=== PATIENT | female | born 2000 | race Caucasian/White ===

== ENCOUNTER 2023-09-09 00:54 | Emergency (ER) | payer BC, SELFPAY ==
[2023-09-09] VITALS (9 sets, daily range): BP systolic 99–151; BP diastolic 51–84
[2023-09-09 01:38] LABS: % Basophils 0.4 % (0-2); % Immature Granulocytes 0.3 % (0-0.5); % Monocytes 3.8 % (1.7-9.3); % Neutrophils 84.5 % (42.2-75.2); Absolute Basophils 0.1 10^3/uL (0-0.2); Absolute Lymphocytes 1.6 10^3/uL (1.2-3.4); Absolute Monocytes 0.5 10^3/uL (0.1-0.6); Hematocrit 36.5 % (37.0-47.0); Hemoglobin 13.2 g/dL (12.0-16.0); Mean Corp Hgb Conc. 36.2 g/dL (33.0-37.0); Mean Corpuscular Hgb 31.4 pg (27.0-31.0); Mean Corpuscular Volume 86.7 fL (81.0-99.0); Mean Platelet Volume 9.4 fL (7.4-10.4); Nucleated Red Blood Cells % 0 %; Platelet Count 382 10^3/uL (130-400); Red Blood Cell Count 4.21 10^6/uL (4.20-5.40); Red Cell Dist. Width 11.5 % (11.5-14.5); White Blood Cell Count 14.2 10^3/uL (4.8-10.8)
--- NOTE | 2023-09-09 01:45 | EDRN ---
Patient brought back to the room and in a lot of pain, increased heart rate of 145, patient very emotional as well, informed Dr. Pollock of patients status, Dr. Pollock in at bedside as well as another nurse, Pelvic exam performed by Dr. Pollock with
staff at bedside assisting, procedure explained to patient, patient tolerated well, tests that are being ordered explained to patient as well, once exam finished mom brought back into the room.
--- NOTE | 2023-09-09 01:47 | ED.GENMED ---
History of Present Illness
General
Chief Complaint: Abdominal Pain
Source: patient
Time Seen by Provider: 09/09/23 01:32
History of Present Illness
History of Present Illness:
This patient is a 23-year-old female presents emergency department with her mother with complaints of bilateral lower abdominal pain associate with nausea that started earlier today. She reports clear vaginal discharge without foul smelling. She
is extremely anxious about being here. She denies chest pain, shortness of breath, back pain, urinary symptoms, headache, dizziness. She notes that she had a 'implant' placed, and has not had her period in 8 months, but then had a menstruation 3
weeks ago. She has taken many many tests over the last 8 months, and states that sometimes they will be faintly positive, most recently 5 months ago.
Past History
Past History
ED Past Medical History: Psychiatric
Social History
Tobacco: Non-smoker
Alcohol: None
Drug: None
Phy Exam
Physical Exam
Physical Exam:
GENERAL: Alert , in no apparent distress but extremely anxious
EYE: pupils equal and reactive
NECK: Supple, no significant adenopathy.
ENT: o/p clr, mmm.
CARDIAC: Regular rate and rhythm .
LUNGS: Clear breath sounds bilaterally, no acute respiratory distress, no wheezes/rales/rhonchi
ABDOMEN: Soft, bilateral lower abdominal tenderness, no r/g, no cvat
NEUROLOGICAL: Alert and oriented, no focal neuro deficits
SKIN: Warm and dry, skin intact.
MUSCULOSKELETAL: No edema, well perfused.
PSYCH: Tearful, extremely anxious
gu: external genitalae wnl, no swelling, no active d/c. Cervical os closed, min d/c noted in vaginal vault (samples collected), expresses discomfort with CMT/adnexal exam
Course
Orders/Labs/Results
Orders:
Orders
09/09/23 01:03
IV Insert/Care/Rem.- Treatment PRN
Test Result ONCE
09/09/23 01:27
Complete Blood Count/With Diff Urgent
Comprehensive Metabolic Panel Urgent
HCG, Serum Qualitative Screen Urgent
Comment: Notify provider if positive test present
Lipase Urgent
Urinalysis Reflex To Culture Urgent
Date Specimen was Collected: 09/09/23
Time Specimen was Collected: 01:03
Urine Microscopic Reflex Cult Urgent
09/09/23 01:46
US Pelvis Only (non-obstetric) Urgent
Comment:
Reason For Exam: LOWER PAIN BILATERAL
09/09/23 01:49
0.9% Sodium Chloride 1000 ml [Nss] 1,000 ml IV BOLUS
09/09/23 01:51
Chlamydia/GC by PCR Urgent
SHENG Source: Endo-Cervical
Specimen Description:
Source:: CERVIX
Date Specimen was Collected: 09/09/23
Time Specimen was Collected: 02:17
Genital Culture Urgent
SHENG Source: Cervix
Specimen Description:
Date Specimen was Collected: 09/09/23
Time Specimen was Collected: 02:17
09/09/23 02:11
Morphine Sulfate 4 mg .ROUTE .STK-MED ONE
Morphine Sulfate 4 mg IV NOW STA
09/09/23 02:18
Trichomonas - Wet Prep Urgent
SHENG Source: Vagina
Specimen Description:
Date Specimen was Collected: 09/09/23
Time Specimen was Collected: 02:17
09/09/23 04:26
Ceftriaxone Sodium [Rocephin] 500 mg IM NOW STA
Doxycycline [Vibramycin] 100 mg PO NOW STA
MetroNIDAZOLE [Flagyl] 500 mg PO NOW STA
Abnormal Lab Results
09/09/23
01:27
WBC 14.2 H 10^3/uL
(4.8-10.8)
Hct 36.5 L %
(37.0-47.0)
MCH 31.4 H pg
(27.0-31.0)
Absolute Neuts (auto) 12.0 H 10^3/uL
(1.4-6.5)
Neutrophils % 84.5 H %
(42.2-75.2)
Lymphocytes % 11.0 L %
(20.5-51.1)
Carbon Dioxide 21 L mmol/L
(22-30)
BUN 22 H mg/dl
(7-17)
Glucose 175 H mg/dl
(70-99)
Ur Occult Blood Reflex Trace A
(Negative)
09/09/23 01:27
09/09/23 01:27
Vital Signs
Initial and Last Documented VS:
Initial Vital Signs
Temp Pulse Resp BP Pulse Ox
100.5 F H 162 24 151/84 99
09/09/23 00:58 09/09/23 00:58 09/09/23 00:58 09/09/23 00:58 09/09/23 00:58
Last Documented Vital Signs
Temp Pulse Resp BP Pulse Ox
100.5 F H 109 32 103/57 92
09/09/23 00:58 09/09/23 05:30 09/09/23 05:30 09/09/23 05:00 09/09/23 04:26
Update Note
Update Note:
Patient presents to the Emergency Department with ___abdominal pain low-grade fever
Number and Complexity of Problems Addressed at the Encounter
� Chronic conditions affecting care:
� Acute Exacerbation and/or Progression of Chronic Illness:
� Differential Diagnosis includes: But not limited to ectopic , PID, intrauterine , etc.
Amount and/or Complexity of Data to be Reviewed and Analyzed
� I performed an independent evaluation of and my interpretation is:
EKG:
CT:
Xrays:
Laboratory Studies: Leukocytosis noted, hCG negative
Other: Vision read, ultrasound pelvis, uterus normal endometrial thickness 4 mm right and left ovaries normal with normal flow no free fluid in pelvis
� Review of other/old records reveals:
� Clinical information was obtained by an independent historian: Mom who is bedside
� Prescriptions/Medications Considered but not given:
� Further testing considered but not performed:
Risk of Complications and/or Morbidity or Mortality of Patient Management
� Social determinants of health affecting care:
� Discussion with other providers (PCP, Hospitalists, Consultants, etc):
� Escalation of care including admission/observation vs risk of discharge considered: Given patient's low-grade fever, lower pelvic pain, CMT, history of discharge, etc., clinically suspect PID. Will medicate accordingly while
cultures pending. Torsion, TOA, etc. not evident in workup here. Doubt appendicitis, diverticulitis, or other acute intra-abdominal process as patient describes lower abdominal/pelvic pain, has findings to suggest PID, and repeat abdominal exam
she does not have any abdominal tenderness to palpation. Mom at bedside as well. Repeat exam, patient states she feels so much better, denies pain, would like to go home. She is well-appearing. Repeat abdominal exam, soft nontender nondistended.
Will discharge with appropriate antibiotics and recommendations for close follow-up. She was advised to see her doctor within the next few days or return to the emergency department immediately if worsening or persistent symptoms.
ED Attending Note
-
Portions of this chart may have been created with voice recognition software.� Occasional wrong word or��sound alike� substitutions may have occurred due to the inherent limitations of voice recognition software.
Discharge Plan
Departure
Patient Disposition: Home (Routine Discharge)
Date of Disposition: 09/09/23
Time of Disposition: 05:32
Patient with high blood pressure during this ER visit?: Yes
Condition: Good
Discharge Problem:
Abdominal pain
Instructions: BLOOD PRESSURE
Prescriptions:
New
doxycycline hyclate 100 mg capsule
100 mg PO BID Qty: 14 0RF
metronidazole 500 mg tablet
500 mg PO BID 7 Days Qty: 14 0RF
Referrals:
NONE,* [Family Provider] -
Activity Restrictions/Additional Instructions:
IF YOU DEVELOP RECURRENT OR NEW PAIN, PERSISTENT FEVER, VOMITING, DIZZINESS, CHEST PAIN, TROUBLE BREATHING, GET WORSE, DO NOT GET BETTER, OR OTHER WORRISOME SIGNS, PLEASE RETURN TO THE ER IMMEDIATELY.
Interventions
Interventions:
*Risk Screen - Suicide Last Done: 09/09/23 00:58
*General Assessment Last Done: 09/09/23 00:58
*Neglect/Abuse Screening Last Done: 09/09/23 00:58
ED- Fall Risk Assessment Last Done: 09/09/23 00:58
DT-Ydywvw-Hgkwjqkfkx Assessment Last Done: 09/09/23 01:48
ED- Neurological Assessment Last Done: 09/09/23 01:48
Discharge Date and Time
Print Language: LAO
[2023-09-09 01:49] LABS: HCG, Serum Qualitative Screen Negative
[2023-09-09] MEDS: NSS 1000 IV (01:49)
[2023-09-09 01:54] LABS: ALT (SGPT) 35 U/L (0-35); AST (SGOT) 29 U/L (14-36); Alkaline Phosphatase 61 U/L (38-126); Blood Urea Nitrogen 22 mg/dl (7-17); Calcium 10.1 mg/dl (8.4-10.2); Carbon Dioxide 21 mmol/L (22-30); Chloride 105 mmol/L (98-107); Estimated Creatinine Clearance 115 ml/min; Glucose 175 mg/dl (70-99); Lipase 83 U/L (23-300); Sodium 138 mmol/L (135-145); Total Bilirubin 0.3 mg/dl (0.2-1.3); Total Protein 7.4 g/dl (6.3-8.2); eGFR > 60.00
[2023-09-09] MEDS: MORPHINE SULFATE 4 MG IV (02:13)
--- NOTE | 2023-09-09 04:30 | EDRN ---
Dr. Pollock wants to speak with patient prior to meds being given, will wait.
[2023-09-09 04:55] LABS: Urine Albumin Negative (Neg - Trace); Urine Bilirubin Negative (Negative); Urine Character Clear (Clear); Urine Color Yellow; Urine Glucose Negative (Negative); Urine Ketone Negative (Negative); Urine Leukocyte Negative (Negative); Urine Nitrite Negative (Negative); Urine Occult Blood Trace (Negative); Urine Specific Gravity 1.015 (<1.030); Urine Urobilinogen Negative (Neg - 1+)
[2023-09-09] MEDS: ROCEPHIN 500 MG IM (05:32)
--- NOTE | 2023-09-09 05:32 | EDRN ---
Dr. Pollock spoke with patient, good for medications now
[2023-09-09] MEDS: VIBRAMYCIN 100 MG PO (05:33)
[2023-09-09] MEDS: FLAGYL 500 MG PO (05:36)
[2023-09-09 06:12] LABS: Urine Squamous Cell 16-20 /LPF (Few)
[2023-09-09 06:13] LABS: Urine Bacteria Few (Negative); Urine White Cell 0-2 /HPF (0-5)
== END 2023-09-09 05:53 | disposition home or self-care (01) ==
LOC: EMR 00:54
PROVIDERS: EMERGENCY PHYSICIAN Emergency Medicine
DX: R10.30 Lower abdominal pain, unspecified (principal); R03.0 Elevated blood-pressure reading, without diagnosis of hypertension
CPT/HCPCS: 99284; 96374; 96361; 96372; 76856; 80053; 81003; 81015; 83690; 84703; 85025; 87070; 87210; 87491; 87591